=== PATIENT | female | born 1950 | race Caucasian/White ===

== ENCOUNTER → 2020-10-15 | Outpatient (CLI) | payer OTHER ==
[~2020-10-15] MED LIST: CEFUROXIME250 MG PO; DIOVAN 80 MG TA80 MG PO; ELIQUIS5 MG PO; ERYTHROMYCIN O3.5 GM EYELF; FLECAINIDE ACET50 MG PO; IMURAN TAB 50 M50 MG PO; KEFLEX CAP 500500 MG PO; METHOTREXATE T2.5 MG PO; PREDNISONE10 MG PO; PROTONIX 40 MG40 M1 PO; RESTASIS 0.05%1 EACH OU; SINGULAIR10 MG PO; SYNTHROID125 MCG PO; TOPROL XL50 MG PO; WIXELA 250-501 EACH INH
== END ==
LOC: HEART 5 11:51
DX: J45.40 Moderate persistent asthma, uncomplicated (principal)
CPT/HCPCS: 94060; 95012

== ENCOUNTER → 2021-01-22 | Outpatient (CLI) | payer OTHER | LOC: EXRD 11:17 | DX: M81.0 Age-related osteoporosis without current pathological fracture (principal); M85.88 Other specified disorders of bone density and structure, other site; M85.852 Other specified disorders of bone density and structure, left thigh | CPT/HCPCS: 77080 ==

== ENCOUNTER → 2021-02-17 | Outpatient (CLI) | payer OTHER | LOC: EXRD 13:05 | DX: J18.9 Pneumonia, unspecified organism (principal); D64.9 Anemia, unspecified; M19.90 Unspecified osteoarthritis, unspecified site; J45.909 Unspecified asthma, uncomplicated; K22.70 Barrett's esophagus without dysplasia; Z92.29 Personal history of other drug therapy | CPT/HCPCS: 71046 ==

== ENCOUNTER → 2021-03-31 | Outpatient (CLI) | payer OTHER ==
[2021-04-01 13:14] LABS: COMPLEMENT C3, SERUM 165 mg/dL (82-167); COMPLEMENT C4, SERUM 30 mg/dL (12-38); RHEUMATOID ARTHRITIS FACTOR <10.0 IU/mL (0.0-13.9)
== END ==
LOC: LAB 12:28
PROVIDERS: Nurse Practitioner Family
DX: L93.0 Discoid lupus erythematosus (principal); M79.641 Pain in right hand; M79.642 Pain in left hand; M25.50 Pain in unspecified joint; M79.10 Myalgia, unspecified site; M19.042 Primary osteoarthritis, left hand; M19.041 Primary osteoarthritis, right hand
CPT/HCPCS: 36415; 73130; 81001; 82550; 82570; 83520; 84156; 85652; 86140; 86160; 86162; 86200; 86431